=== PATIENT | female | born 1985 | race American Indian/Alaskan Native ===

== ENCOUNTER 2016-07-29 08:30 | Emergency (ER) | payer OTHER ==
[2016-07-29 09:37] LABS: Basophils % (Auto) 0.6 % (0.0-1.8); Eosinophils % (Auto) 1.8 % (0.0-4.3); Hematocrit 42.1 % (30.3-42.9); Hemoglobin 13.7 gm/dl (10.1-14.3); Mean Corpuscular HGB Conc 33 % (30-34); Mean Corpuscular Hemoglobin 31 pg (28-32); Mean Corpuscular Volume 95 fl (79-97); Platelet Count 222 K/mm3 (140-440); Red Blood Count 4.42 M/mm3 (3.65-5.03); Red Cell Distribution Width 13.3 % (13.2-15.2); White Blood Count 6.2 K/mm3 (4.5-11.0)
[2016-07-29 09:56] LABS: Alanine Aminotransferase 18 units/L (7-56); Albumin 4.2 g/dL (3.9-5); Albumin/Globulin Ratio 1.5 %; Alkaline Phosphatase 54 units/L (35-129); Anion Gap 14 mmol/L; Bilirubin,Total 0.9 mg/dL (0.1-1.2); Blood Urea Nitrogen 11 mg/dL (7-17); Calcium 9.2 mg/dL (8.4-10.2); Carbon Dioxide 26 mmol/L (22-30); Chloride 102.4 mmol/L (98-107); Glucose 76 mg/dL (65-100); Lipase 24 units/L (13-60); Potassium 3.6 mmol/L (3.6-5.0); Sodium 139 mmol/L (137-145)
[2016-07-29 11:41] LABS: Bacteria,Urine 1+ /HPF (Negative); Bilirubin,Urine NEG (Negative); Blood,Urine NEG (Negative); Ketones,Urine NEG (Negative); Leukocyte Esterase,Urine NEG (Negative); Mucus,Urine 3+ /HPF; Nitrite,Urine NEG (Negative); Protein,Urine <15 mg/dL mg/dL (Negative); Urobilinogen,Urine < 2.0 mg/dL (<2.0); WBC,Urine < 1.0 /HPF (0.0-6.0)
--- NOTE | 2016-07-29 12:16 | Emergency Department Report ---
ED Female HPI - General Chief complaint: Abdominal Pain Stated complaint: ABD PAIN/VAGINAL/RECTUM/ITCHING Source: patient Mode of arrival: Ambulatory Limitations: No Limitations - History of Present Illness Initial comments: 30-year-old -[place] female comes in with complaint of allergic reaction to condoms. Patient reports that she's had pain and itching to her vaginal rectal area for the past few days. She has attempted to treat herself with mhlf-htv-wlsetad medication without any resolution. Patient reports that this is an partner that she's been with trying to prevent . She reports that initially she had thick white discharge and that went away. Now she reports vaginal itching and labial itching rectum itching. MD Complaint: vaginal discharge, dysuria - Related Data Previous Rx's Medication Instructions Recorded Last Taken Type Acetaminophen/Codeine [Tylenol #3] 1 tab PO Q6H PRN #20 tab 05/14/15 Unknown Rx Doxycycline [Vibramycin CAP] 100 mg PO Q12HR #20 capsule 05/14/15 Unknown Rx Fluconazole [Diflucan TAB] 150 mg PO ONCE #1 tablet 05/14/15 Unknown Rx Ibuprofen [Motrin] 600 mg PO Q8H PRN #40 tablet 05/14/15 Unknown Rx metroNIDAZOLE [Flagyl] 500 mg PO Q12HR #20 tab 05/14/15 Unknown Rx Miconazole Nitrate [Miconazole 3] 1 applicator VG QHS #3 cmb.pf.crm 07/29/16 Unknown Rx Allergies Allergy/AdvReac Type Severity Reaction Status Date / Time No Known Allergies Allergy Verified 05/14/15 14:30 ED Review of Systems ROS: Stated complaint: ABD PAIN/VAGINAL/RECTUM/ITCHING Other details as noted in HPI ED Past Medical Hx - Past Medical History Previous Medical History?: Yes Hx Hypertension: No Hx CVA: No Hx Heart Attack/AMI: No Hx Congestive Heart Failure: No Hx Diabetes: No Hx Deep Vein Thrombosis: No Hx Pulmonary Embolism: No Hx GERD: No Hx Liver Disease: No Hx Renal Disease: No Hx of Cancer: No Hx Sickle Cell Disease: No Hx Arthritis: No Hx Headaches / Migraines: Yes Hx Seizures: No Hx Kidney Stones: No Hx Psychiatric Treatment: No Hx Asthma: Yes Hx COPD: No Hx Tuberculosis: No Hx Dementia: No Hx HIV: No Additional medical history: STD/ PID - Surgical History Past Surgical History?: No - Social History Smoking Status: Never Smoker Substance Use Type: Marijuana - Medications Home Medications: Home Medications Medication Instructions Recorded Confirmed Last Taken Type Acetaminophen/Codeine [Tylenol #3] 1 tab PO Q6H PRN #20 tab 05/14/15 Unknown Rx Doxycycline [Vibramycin CAP] 100 mg PO Q12HR #20 capsule 05/14/15 Unknown Rx Fluconazole [Diflucan TAB] 150 mg PO ONCE #1 tablet 05/14/15 Unknown Rx Ibuprofen [Motrin] 600 mg PO Q8H PRN #40 tablet 05/14/15 Unknown Rx metroNIDAZOLE [Flagyl] 500 mg PO Q12HR #20 tab 05/14/15 Unknown Rx Miconazole Nitrate [Miconazole 3] 1 applicator VG QHS #3 cmb.pf.crm 07/29/16 Unknown Rx ED Physical Exam - General Limitations: No Limitations ED Course Vital Signs 07/29/16 07/29/16 09:01 09:06 Temperature 98.1 F 98.1 F Pulse Rate 96 H 91 H Respiratory 20 Rate Blood Pressure 119/76 Blood Pressure 119/76 [Right] O2 Sat by Pulse 100 100 Oximetry ED Medical Decision Making - Lab Data Result diagrams: 07/29/16 09:16 07/29/16 09:16 Critical care attestation.: If time is entered above; I have spent that time in minutes in the direct care of this critically ill patient, excluding procedure time. ED Disposition Clinical Impression: Exposure to chlamydia, mucopurulent cervitis/nongonococcal urethritis Disposition: DISCHARGED TO HOME OR SELFCARE Is pt being admited?: No Does the pt Need Aspirin: No Condition: Stable Instructions: Abdominal Pain (ED), Cervicitis (ED) Additional Instructions: Please call in 3-7 days to check your results please. I recommend no intercourse until your results are back. Prescriptions: Miconazole Nitrate [Miconazole 3] 1 applicator VG QHS #3 cmb.pf.crm Referrals: PRIMARY CARE, [Primary Care Provider] - 3-5 Days Forms: Work/School Release Form(ED)
[2016-07-29] MEDS ORDERED: XYLOCAINE 1% MPF 5 mL INFILTRATI ONE (13:52)
[2016-07-29] MEDS ORDERED: ROCEPHIN IM ONE (13:52)
[2016-07-29] MEDS ORDERED: ZITHROMAX PO ONE (13:52)
[2016-07-29 14:52] VITALS: BP 120/81
== END 2016-07-29 14:51 | disposition home or self-care (01) ==
LOC: ED 08:30
DX: N72 Inflammatory disease of cervix uteri (principal); N34.1 Nonspecific urethritis; Z20.2 Contact with and (suspected) exposure to infections with a predominantly sexual mode of transmission; G43.909 Migraine, unspecified, not intractable, without status migrainosus; F12.10 Cannabis abuse, uncomplicated; J45.909 Unspecified asthma, uncomplicated
CPT/HCPCS: 36415; 80053; 81001; 83690; 84702; 85025; 86695; 86696; 87210; 87591; 96372; 99283; J0696; 87529

== ENCOUNTER 2021-04-05 13:15 | Emergency (ER) | payer BC, OTHER ==
--- NOTE | 2021-04-05 14:15 | Emergency Department Report ---
ED General Adult HPI - General Chief complaint: Sore Throat Stated complaint: THROAT, AND CHEST PAIN Time Seen by Provider: 04/05/21 13:31 Source: patient Mode of arrival: Ambulatory Limitations: No Limitations - History of Present Illness Initial comments: Patient is a 35-year-old female presents emergency room with complaints of cough and chest congestion that began a week ago. She has associated sore throat. She states that she has been taking trjv-xxv-bodbetz medications with some relief but continues to have symptoms. She denies any fever, vomiting, diarrhea. Patient states also for the last few days she has been having vaginal discharge and itching. She states that she is sexually active without protection. She states that she does have some concerns for STDs. She is not having any dysuria, pelvic pain, back pain. No allergies to medications. Severity scale (0 -10): 3 - Related Data Previous Rx's Medication Instructions Recorded Last Taken Type Acetaminophen/Codeine [Tylenol #3] 1 tab PO Q6H PRN #20 tab 05/14/15 Unknown Rx Fluconazole (Nf) [Diflucan TAB] 150 mg PO ONCE #1 tablet 05/14/15 Unknown Rx Ibuprofen [Motrin] 600 mg PO Q8H PRN #40 tablet 05/14/15 Unknown Rx metroNIDAZOLE [Flagyl] 500 mg PO Q12HR #20 tab 05/14/15 Unknown Rx Miconazole Nitrate [Miconazole 3] 1 applicator VG QHS #3 cmb.pf.crm 07/29/16 Unknown Rx Acetaminophen/Codeine [Tylenol 1 tab PO Q6H PRN #15 tab 08/31/18 Unknown Rx /Codeine # 3 tab] Albuterol Mdi (or & Nicu Only) 2 puff IH Q4HR PRN #1 inhalation 08/31/18 Unknown Rx [ProAir HFA Inhaler] Azithromycin [Zithromax Z-MAGED] 250 mg PO DAILY #6 tablet 08/31/18 Unknown Rx Benzonatate [Tessalon Perles] 100 mg PO Q8HR PRN #20 capsule 08/31/18 Unknown Rx guaiFENesin/CODEINE [Robitussin AC] 5 ml PO Q12HR PRN #180 oral.liqd 08/31/18 Unknown Rx predniSONE [Deltasone] 20 mg PO DAILY #15 tablet 08/31/18 Unknown Rx Benzonatate [Tessalon Perles] 100 mg PO Q8HR PRN #10 capsule 04/05/21 Unknown Rx DOXYCYCLINE Hyclate [Vibramycin 100 mg PO Q12HR #20 capsule 04/05/21 Unknown Rx CAP] Fluconazole [Diflucan TAB] 150 mg PO ONCE 1 Days #3 tablet 04/05/21 Unknown Rx guaiFENesin ER [Mucinex ER] 600 mg PO Q12H #14 tablet.er 04/05/21 Unknown Rx Allergies Allergy/AdvReac Type Severity Reaction Status Date / Time No Known Allergies Allergy Verified 08/31/18 10:28 ED Review of Systems ROS: Stated complaint: THROAT, AND CHEST PAIN Other details as noted in HPI Comment: All other systems reviewed and negative ED Past Medical Hx - Past Medical History Hx Hypertension: No Hx CVA: No Hx Heart Attack/AMI: No Hx Congestive Heart Failure: No Hx Diabetes: No Hx Deep Vein Thrombosis: No Hx Pulmonary Embolism: No Hx GERD: No Hx Liver Disease: No Hx Renal Disease: No Hx Sickle Cell Disease: No Hx Arthritis: No Hx Headaches / Migraines: Yes Hx Seizures: No Hx Kidney Stones: No Hx Psychiatric Treatment: No Hx Asthma: Yes Hx COPD: No Hx Tuberculosis: No Hx Dementia: No Hx HIV: No Additional medical history: STD/ PID - Social History Smoking Status: Never Smoker Substance Use Type: None - Medications Home Medications: Home Medications Medication Instructions Recorded Confirmed Last Taken Type Acetaminophen/Codeine [Tylenol #3] 1 tab PO Q6H PRN #20 tab 05/14/15 Unknown Rx Fluconazole (Nf) [Diflucan TAB] 150 mg PO ONCE #1 tablet 05/14/15 Unknown Rx Ibuprofen [Motrin] 600 mg PO Q8H PRN #40 tablet 05/14/15 Unknown Rx metroNIDAZOLE [Flagyl] 500 mg PO Q12HR #20 tab 05/14/15 Unknown Rx Miconazole Nitrate [Miconazole 3] 1 applicator VG QHS #3 cmb.pf.crm 07/29/16 Unknown Rx Acetaminophen/Codeine [Tylenol 1 tab PO Q6H PRN #15 tab 08/31/18 Unknown Rx /Codeine # 3 tab] Albuterol Mdi (or & Nicu Only) 2 puff IH Q4HR PRN #1 inhalation 08/31/18 Unknown Rx [ProAir HFA Inhaler] Azithromycin [Zithromax Z-MAGED] 250 mg PO DAILY #6 tablet 08/31/18 Unknown Rx Benzonatate [Tessalon Perles] 100 mg PO Q8HR PRN #20 capsule 08/31/18 Unknown Rx guaiFENesin/CODEINE [Robitussin AC] 5 ml PO Q12HR PRN #180 oral.liqd 08/31/18 Unknown Rx predniSONE [Deltasone] 20 mg PO DAILY #15 tablet 08/31/18 Unknown Rx Benzonatate [Tessalon Perles] 100 mg PO Q8HR PRN #10 capsule 04/05/21 Unknown Rx DOXYCYCLINE Hyclate [Vibramycin 100 mg PO Q12HR #20 capsule 04/05/21 Unknown Rx CAP] Fluconazole [Diflucan TAB] 150 mg PO ONCE 1 Days #3 tablet 04/05/21 Unknown Rx guaiFENesin ER [Mucinex ER] 600 mg PO Q12H #14 tablet.er 04/05/21 Unknown Rx ED Physical Exam - General Limitations: No Limitations General appearance: alert, in no apparent distress - Head Head exam: Present: atraumatic, normocephalic - Eye Eye exam: Present: normal appearance - ENT ENT exam: Present: normal orophraynx, mucous membranes moist, TM's normal bilaterally, normal external ear exam - Respiratory Respiratory exam: Present: normal lung sounds bilaterally. Absent: respiratory distress, wheezes, rales, rhonchi, stridor, chest wall tenderness, accessory muscle use, decreased breath sounds, prolonged expiratory - Cardiovascular Cardiovascular Exam: Present: regular rate, normal rhythm, normal heart sounds. Absent: systolic murmur, diastolic murmur, rubs, gallop - GI/Abdominal GI/Abdominal exam: Present: soft. Absent: distended, tenderness, guarding, rebound, rigid - Neurological Exam Neurological exam: Present: alert, oriented X3 - Psychiatric Psychiatric exam: Present: normal affect, normal mood - Skin Skin exam: Present: warm, dry, intact ED Course Vital Signs 04/05/21 04/05/21 13:32 17:36 Temperature 98.9 F 98.2 F Pulse Rate 84 78 Respiratory 20 16 Rate Blood Pressure 117/72 123/85 [84] O2 Sat by Pulse 98 99 Oximetry ED Medical Decision Making - Lab Data Lab Results 04/05/21 04/05/21 Range/Units 14:33 Unknown Urine Color Yellow (Yellow) Urine Turbidity Clear (Clear) Urine pH 6.0 (5.0-7.0) Ur Specific [place] 1.019 (1.003-1.030) Urine Protein <15 mg/dl (Negative) mg/dL Urine Glucose (UA) Neg (Negative) mg/dL Urine Ketones Neg (Negative) mg/dL Urine Blood Neg (Negative) Urine Nitrite Neg (Negative) Urine Bilirubin Neg (Negative) Urine Urobilinogen < 2.0 (<2.0) mg/dL Ur Leukocyte Esterase Neg (Negative) Urine WBC (Auto) 2.0 (0.0-6.0) /HPF Urine RBC (Auto) 1.0 (0.0-6.0) /HPF U Epithel Cells (Auto) 7.0 (0-13.0) /HPF Urine Bacteria (Auto) 1+ (Negative) /HPF Urine Mucus 1+ /HPF Urine HCG, Qual Negative (Negative) Group A Strep Rapid Negative (Negative) - Radiology Data Radiology results: report reviewed Ordering Physician: JAIDA VERMA Date of Service: 04/05/21 Procedure(s): XR chest routine 2V Accession Number(s): [id number] cc: JAIDA VERMA Fluoro Time In Minutes: CHEST 2 VIEWS INDICATION / CLINICAL INFORMATION: cough, congestion. COMPARISON: None available. FINDINGS: SUPPORT DEVICES: None. HEART / MEDIASTINUM: No significant abnormality. LUNGS / PLEURA: No significant pulmonary or pleural abnormality. No pneumothorax. ADDITIONAL FINDINGS: No significant additional findings. IMPRESSION: 1. No acute findings. Signer Name: Enrique Lopez MD Signed: 04/05/2021 4:13 PM Workstation Name: [id number] Transcribed By: CONNIE Dictated By: Enrique Lopez MD Electronically Authenticated By: Enrique Lopez MD Signed Date/Time: 04/05/211612 DD/ 12 TD/TT: - Medical Decision Making Patient is a 35-year-old female presents emergency room with complaints of cough and chest congestion that began a week ago. She has associated sore throat. She states that she has been taking qwwd-plu-hmritao medications with some relief but continues to have symptoms. She denies any fever, vomiting, diarrhea. Patient states also for the last few days she has been having vaginal discharge and itching. She states that she is sexually active without protection. She states that she does have some concerns for STDs. She is not having any dysuria, pelvic pain, back pain. No allergies to medications. Vitals are normal. Normal oropharynx, normal TMs and canals, breath sounds are clear bilaterally. UA without evidence of significant UTI, urine is negative. Rapid strep is negative. Chest x-ray with no acute process. Given patient's concerns for STDs, given ceftriaxone IM and Flagyl p.o. while in the emergency department and given prescription for doxycycline. Patient has no clinical signs of PID or TOA. Patient's cough, congestion, sore throat likely related to URI. Supportive care and symptomatic treatment with patient. Advised patient Please take medication as prescribed. Increase your fluid intake. Please follow-up with the clinic or the health department to have a full STD panel. Please have any partners and treat as well. Avoid sexual intercourse. Follow-up with your primary care doctor. Return to emergency room for any new or worsening symptoms. Recommend outpatient COVID-19 testing if positive for any self quarantine for 10 days from symptom symptoms. Critical care attestation.: If time is entered above; I have spent that time in minutes in the direct care of this critically ill patient, excluding procedure time. ED Disposition Clinical Impression: Concern about STD in female without diagnosis Upper respiratory infection Qualifiers: URI type: unspecified URI Qualified Code(s): J06.9 - Acute upper respiratory infection, unspecified Vaginitis Qualifiers: Chronicity: acute Qualified Code(s): N76.0 - Acute vaginitis Disposition: 01 HOME / SELF CARE / HOMELESS Is pt being admited?: No Does the pt Need Aspirin: No Condition: Stable Instructions: Vaginitis, Fjcp-qe-Vohx, Viral Respiratory Infection Test Additional Instructions: Please take medication as prescribed. Increase your fluid intake. Please follow-up with the clinic or the health department to have a full STD panel. Please have any partners and treat as well. Avoid sexual intercourse. Follow- up with your primary care doctor. Return to emergency room for any new or worsening symptoms. Recommend outpatient COVID-19 testing if positive for any self quarantine for 10 days from symptom symptoms. Prescriptions: Fluconazole [Diflucan TAB] 150 mg PO ONCE 1 Days #3 tablet guaiFENesin ER [Mucinex ER] 600 mg PO Q12H #14 tablet.er Benzonatate [Tessalon Perles] 100 mg PO Q8HR PRN #10 capsule PRN Reason: cough DOXYCYCLINE Hyclate [Vibramycin CAP] 100 mg PO Q12HR #20 capsule Referrals: PRIMARY CARE,MD [Primary Care Provider] - 3-5 Days [facility] [Provider Group] - 3-5 Days [facility] [Outside] - 3-5 Days Time of Disposition: 16:34 Print Language: PORTUGUESE
[2021-04-05 15:02] LABS: Bacteria,Urine 1+ /HPF (Negative); Bilirubin,Urine NEG (Negative); Blood,Urine NEG (Negative); Color,Urine Yellow (Yellow); Mucus,Urine 1+ /HPF; Protein,Urine <15 mg/dL mg/dL (Negative); Urobilinogen,Urine < 2.0 mg/dL (<2.0)
[2021-04-05 15:03] LABS: HCG Qualitative,Urine Negative (Negative)
[2021-04-05] MEDS ORDERED: metroNIDAZOLE 500 MG TAB PO ONE (15:28)
[2021-04-05] MEDS ORDERED: LIDOCAINE-MPF (1%) 10 MG/1 ML VIAL 5 ML INFILTRATI ONE (15:28)
--- NOTE | 2021-04-05 16:17 | XRay Report ---
CHEST 2 VIEWS INDICATION / CLINICAL INFORMATION: cough, congestion. COMPARISON: None available. FINDINGS: SUPPORT DEVICES: None. HEART / MEDIASTINUM: No significant abnormality. LUNGS / PLEURA: No significant pulmonary or pleural abnormality. No pneumothorax. ADDITIONAL FINDINGS: No significant additional findings. IMPRESSION: 1. No acute findings. Signer Name: Enrique Lopez MD Signed: 04/05/2021 4:13 PM Workstation Name: [id number]
[2021-04-05 17:38] VITALS: BP 123/85
== END 2021-04-05 17:36 | disposition home or self-care (01) ==
LOC: ED 13:15
DX: J06.9 Acute upper respiratory infection, unspecified (principal); N76.0 Acute vaginitis; Z20.2 Contact with and (suspected) exposure to infections with a predominantly sexual mode of transmission; G43.909 Migraine, unspecified, not intractable, without status migrainosus; Z79.899 Other long term (current) drug therapy
CPT/HCPCS: 71046; 81001; 81025; 87116; 87430; 96372; 99284; J0696; J3490